=== PATIENT | male | born 1940 | race Hispanic/Latino ===

== ENCOUNTER 2021-09-29 16:51 | Inpatient (IN) | payer MEDICARE ==
[2021-09-29] VITALS (9 sets, daily range): BP systolic 124–164; BP diastolic 55–88
[2021-09-29] MEDS ORDERED: BIVALIRUDIN 250 MG/VIAL IV ONE (18:54)
[2021-09-29] MEDS ORDERED: MIDAZOLAM HCL 1 MG/ML 2ML VIAL ONE (18:54)
[2021-09-29] MEDS ORDERED: LIDOCAINE HCL 1% 20 ML VIAL ONE ×2 (18:54→19:53)
[2021-09-29] MEDS ORDERED: FENTANYL CITRATE PF 50 MCG/1 ML 2ML VIAL ONE (18:54)
[2021-09-29] MEDS ORDERED: IOHEXOL 350 MG/ML 100ML INFUS..BTL IV ONE (18:55)
[2021-09-29] MEDS ORDERED: HYDRALAZINE 20MG/ML VIAL ONE (19:43)
[2021-09-29] MEDS ORDERED: HYDRALAZINE 20MG/ML VIAL IV PRN (20:00)
[2021-09-29] MEDS: 0.9%NACL 1000ML 1,000 ML IV SCH ×2 (20:49→20:50)
[2021-09-29] MEDS ORDERED: LEVO25CA4 PO (23:58)
[2021-09-29] MEDS ORDERED: ENAL2.5T16 PO (23:58)
[2021-09-29] MEDS ORDERED: GLIP5TAB PO (23:58)
[2021-09-29] MEDS ORDERED: LINA5TAB PO (23:58)
[2021-09-29] MEDS ORDERED: ASPI-1005 PO (23:58)
[2021-09-30] VITALS (53 sets, daily range): BP systolic 127–194; BP diastolic 41–109
[2021-09-30 03:45] LABS: BASOPHILS % (AUTO) 0.5 % (0.0-5.0); EOSINOPHILS % (AUTO) 3.4 % (0.0-8.0); LYMPHOCYTES % (AUTO) 18.6 % (21.0-51.0); MEAN CORPUSCULAR HEMOGLOBIN 29.8 pg (27.0-33.0); MEAN CORPUSCULAR HGB CONC 31.8 g/dL (32.0-36.0); MEAN CORPUSCULAR VOLUME 93.8 fL (79-99); MONOCYTES % (AUTO) 13.1 % (3.0-13.0); PLATELET COUNT (AUTO) 137 K/uL (130-400); RED BLOOD CELL COUNT(AUTO) 3.52 MIL/uL (4.50-6.20); RED CELL DISTRIBUTION WIDTH 13.6 % (11.0-15.5); WHITE BLOOD COUNT (AUTO) 7.6 K/uL (4.8-10.8)
[2021-09-30 03:58] LABS: CREATININE 1.7 mg/dL (0.5-1.5); POTASSIUM 4.7 mmol/L (3.5-5.1)
[2021-09-30] MEDS ORDERED: HYDRALAZINE HCL 10 MG TABLET ONE (04:59)
[2021-09-30] MEDS ORDERED: HYDRALAZINE HCL 10 MG TABLET PO SCH (05:00)
[2021-09-30] MEDS ORDERED: CEFAZOLIN SODIUM 1 GM VIAL IVP PRN (09:00)
[2021-09-30 09:25] LABS: INR 1.12 (0.85-1.15); PROTHROMBIN TIME 12.1 SEC (9.6-11.6)
[2021-09-30 09:26] LABS: PARTIAL THROMBOPLASTIN TIME 26.4 SEC (26.3-35.5)
[2021-09-30] MEDS ORDERED: 0.9%NACL 1000ML 1,000 ML IV ONE (09:49)
[2021-09-30] MEDS ORDERED: HYDRALAZINE 20MG/ML VIAL IV PRN (11:30)
[2021-09-30] MEDS ORDERED: MIDAZOLAM HCL 1 MG/ML 2ML VIAL ONE (11:31)
[2021-09-30] MEDS ORDERED: MEPERIDINE-PF 25 MG/ML SYG ONE ×2 (11:32→12:31)
[2021-09-30] MEDS ORDERED: LIDOCAINE HCL 1% MDV 50ML VIAL ONE (11:32)
[2021-09-30] MEDS ORDERED: IODIXANOL 320 MG/ML 100 ML VIAL ONE (11:33)
[2021-09-30] MEDS ORDERED: CEFAZOLIN SODIUM 1 GM VIAL ONE (12:05)
[2021-09-30] MEDS: INSULIN HUMULIN R 100 UNIT/ML 3ML SQ SCH ×3 (14:09→20:44)
[2021-10-01 04:00] VITALS: BP 150/65
[2021-10-01 04:09] LABS: BASOPHILS % (AUTO) 0.4 % (0.0-5.0); EOSINOPHILS % (AUTO) 2.7 % (0.0-8.0); MEAN CORPUSCULAR HEMOGLOBIN 30.5 pg (27.0-33.0); MEAN CORPUSCULAR HGB CONC 32.6 g/dL (32.0-36.0); MEAN CORPUSCULAR VOLUME 93.7 fL (79-99); MONOCYTES % (AUTO) 13.1 % (3.0-13.0); NEUTROPHILS % (AUTO) 65.5 % (40.0-77.0); PLATELET COUNT (AUTO) 133 K/uL (130-400); RED BLOOD CELL COUNT(AUTO) 3.31 MIL/uL (4.50-6.20); RED CELL DISTRIBUTION WIDTH 13.4 % (11.0-15.5); WHITE BLOOD COUNT (AUTO) 7.3 K/uL (4.8-10.8)
[2021-10-01 04:48] LABS: B-TYPE NATRIURETIC PEPTIDE 695 pg/mL (0-100)
[2021-10-01 04:55] LABS: ALBUMIN 2.7 g/dL (3.5-5.0); BILIRUBIN,TOTAL 0.5 mg/dL (0.2-1.0); CREATININE 1.6 mg/dL (0.5-1.5); MAGNESIUM 1.7 mg/dL (1.80-2.40); POTASSIUM 4.6 mmol/L (3.5-5.1); THYROID STIMULATING HORMONE 1.64 uIU/mL (0.36-3.74); TOTAL PROTEIN, SERUM 5.7 g/dL (6.0-8.3)
[2021-10-01 06:38] VITALS: BP 143/74
[2021-10-01] MEDS: INSULIN HUMULIN R 100 UNIT/ML 3ML SQ SCH ×2 (06:45→11:30)
[2021-10-01] MEDS: ACETAMINOPHEN WITH CODEINE 1 TAB TAB PO PRN ×2 (08:01→14:54)
[2021-10-01] MEDS ORDERED: LINAGLIPTIN 5 MG TABLET PO SCH (09:00)
[2021-10-01] MEDS ORDERED: ASPIRIN 81MG CHEW TAB PO SCH (09:00)
[2021-10-01] MEDS ORDERED: FAMOTIDINE 20MG VIAL IV SCH (09:00)
[2021-10-01] MEDS ORDERED: LEVOTHYROXINE 25 MCG TABLET PO SCH (09:00)
[2021-10-01 11:00] VITALS: BP 138/67
[2021-10-01] MEDS ORDERED: MAGNESIUM 2GM PREMIX 50ML 50 ML IV SCH (11:00)
[2021-10-01] MEDS ORDERED: TRAM50TA4 PO (14:20)
== END 2021-10-01 15:00 | disposition home or self-care (01) | DRG 242 ==
LOC: 2CH 18:46 → 2AH 09-30 16:10
PROVIDERS: ADMIT Internal Medicine; ATTEND Internal Medicine
PROC: 4A023N7 Measurement of Cardiac Sampling and Pressure, Left Heart, Percutaneous Approach (ICD-10-PCS; principal; 2021-09-29)
PROC: B2111ZZ Fluoroscopy of Multiple Coronary Arteries using Low Osmolar Contrast (ICD-10-PCS; 2021-09-29)
PROC: 5A1213Z Performance of Cardiac Pacing, Intermittent (ICD-10-PCS; 2021-09-29)
PROC: B41J1ZZ Fluoroscopy of Other Lower Arteries using Low Osmolar Contrast (ICD-10-PCS; 2021-09-29)
PROC: 0JH606Z Insertion of Pacemaker, Dual Chamber into Chest Subcutaneous Tissue and Fascia, Open Approach (ICD-10-PCS; 2021-09-30)
PROC: 02H60JZ Insertion of Pacemaker Lead into Right Atrium, Open Approach (ICD-10-PCS; 2021-09-30)
PROC: 02PA3MZ Removal of Cardiac Lead from Heart, Percutaneous Approach (ICD-10-PCS; 2021-09-30)
PROC: 02HK0JZ Insertion of Pacemaker Lead into Right Ventricle, Open Approach (ICD-10-PCS; 2021-09-30)
DX: I44.2 Atrioventricular block, complete (principal); I21.4 Non-ST elevation (NSTEMI) myocardial infarction; N17.9 Acute kidney failure, unspecified; I10 Essential (primary) hypertension; E78.5 Hyperlipidemia, unspecified; E11.9 Type 2 diabetes mellitus without complications; E03.9 Hypothyroidism, unspecified; E07.9 Disorder of thyroid, unspecified; Z87.891 Personal history of nicotine dependence; Z79.82 Long term (current) use of aspirin; Z79.899 Other long term (current) drug therapy; Z82.49 Family history of ischemic heart disease and other diseases of the circulatory system; Z79.84 Long term (current) use of oral hypoglycemic drugs; R00.1 Bradycardia, unspecified
CPT/HCPCS: 33208; 33210; 36415; 71045; 80048; 80053; 82948; 83036; 83735; 83880; 84443; 85025; 85610; 85730; 93306; 93356; 93454; 99156; 99157; C1785; C1894; G0378; J0360; J0583; J0690; J1644; J1815; J2175; J2250; J3010; J3475; J3490; J7030; Q9967